=== PATIENT | female | born 1985 | race Caucasian/White ===

== ENCOUNTER → 2025-09-22 | Emergency (ER) | payer MEDICAID, OTHER ==
[~2025-09-22] VITALS: Ht 162.6 cm; Wt 87.5 kg
[~2025-09-22] MED LIST: ADV50100 IH; MECL12.5 PO
[2025-09-22 20:53] VITALS: BP 134/76; PULSE 73; RESP 16; TEMP 97.4; O2SAT 98
--- NOTE | 2025-09-25 09:39 | Physician Documentation ---
History of Present Illness ~ Chief Complaint: Burn Stated Complaint: HAND BURN Time Seen by MD: 20:58 OK to notify your PCP?: Yes Primary Medical Doctor: NONE Source: patient, family HPI Patient the patient is seen today with complaints of splashing hot oil onto her right palm just prior to arrival. She states he ran some cold water or for period of time but states it is still burning in his concerned. She denies any fever or chills and denies any other areas of injury. He has no other concern or complaint at this time. Tetanus within 5 years?: No Medication Reconciliation Allergies: Coded Allergies: levalbuterol HCl (Verified Allergy, Intermediate, BODY GOES NUMB, 09/22/25) Uncoded Allergies: CONTROL (Allergy, Intermediate, HOT AND SWEATY, 08/02/12) Scheduled Fluticasone/Salmeterol* (Advair 100-50 Diskus*), 1 INH IH BID, (Reported) Meclizine Hcl* (Antivert*), 25 MG PO 3 times a day Past Medical History Past Medical History: Migraine, Asthma, *RENAL/*, UTI Past Surgical History: no surgical history Last Menstrual Period: Oct 04, 2025 Smoking Status: Never smoker Alcohol Use: None Drug Use: none Lives with: Family Lives In: Home Occupation: unemployed Review of Systems Constitutional: Denies: chills, fever, weakness Eyes: Denies: pain, blurred vision ENT: Denies: ear pain, nose pain, throat pain, mouth pain Respiratory: Denies: cough, shortness of breath Cardiovascular: Denies: chest pain, palpitations Gastrointestinal: Denies: abdominal pain, nausea, vomiting Genitourinary: Denies: burning, dysuria Female Genitalia: Denies: vaginal discharge, pelvic pain Neurological: Denies: headache, dizziness Musculoskeletal: Denies: pain, swelling Integumentary: Denies: rash, lesions Allergic/Immunologic: Denies: hives, itching Hematologic/Lymphatic: Denies: no symptoms reported Psychiatric: Denies: depression, anxiety Physical Exam Vital Signs: Temperature: 97.4, Source: Temporal, Heart Rate: 73, Respiratory Rate: 16, BP: 134/76, Pulse Oximetry: 98, Weight: 87.500 Physical Exam General: Awake and Alert, no acute distress. HEENT: Conjunctiva pink, Sclera clear, Mucus Membranes moist. Neck: Supple without masses and tenderness. Resp: Unlabored. Lungs clear to auscultation bilaterally. Heart: Regular Rate and rhythm, normal S1 and S2 without murmur, rub or gallop. Musculoskeletal: Patient on exam has mild erythema of the right palm without any skin breakdown or vesicle formation. Patient is neurovascularly intact distally. Patient has significant tenderness to palpation of the right palm. Motor function and range of motion intact. Extremities: No cyanosis,clubbing or edema. Skin: Warm and Dry. Progress Results/Orders Results/Orders Vital Signs 09/22/25 20:53 Temp 97.4 Pulse 73 Resp 16 B/P (MAP) 134/76 Pulse Ox 98 Medical Decision Making Additional information obtaine: N/A Findings Patient the patient is seen today with complaints of splashing hot oil onto her right palm just prior to arrival. She states he ran some cold water or for period of time but states it is still burning in his concerned. She denies any fever or chills and denies any other areas of injury. He has no other concern or complaint at this time. Patient did have cold water running over the right palm for about an hour in the ED tonight. Patient states it is feeling a little better continue cold water therapy and will hold off on playing any salves or burn ointments until the burning sensation stops hopefully tomorrow. Patient will follow up with primary care in 1-3 days if no better as needed sooner. Return to ED with any worsening, concerning or changing symptoms. Differential Dx:Considerations: Include: Burn-Partial thickness, Burn-Full thickness Departure Disposition: 01 HOME / SELF CARE / HOMELESS Impression: Primary Impression: First degree burn of hand Qualified Codes: T23.151A - Burn of first degree of right palm, initial encounter Condition: Stable Discharge Instructions: Burn Care, Adult Additional Instructions: Patient did have cold water running over the right palm for about an hour in the ED tonight. Patient states it is feeling a little better continue cold water therapy and will hold off on playing any salves or burn ointments until the burning sensation stops hopefully tomorrow. Patient will follow up with primary care in 1-3 days if no better as needed sooner. Return to ED with any worsening, concerning or changing symptoms. Referrals: NO PRIMARY CARE PROVIDER (PCP) Signature Scribe Signature: No scribe Attestation: No scribe QURESHI,OCTAVIA R PAC Sep 25, 2025 09:39
== END | disposition home or self-care (01) ==
LOC: ER 20:50
DX: T23.151A Burn of first degree of right palm, initial encounter (principal); G43.909 Migraine, unspecified, not intractable, without status migrainosus; J45.909 Unspecified asthma, uncomplicated; X58.XXXA Exposure to other specified factors, initial encounter; Y93.89 Activity, other specified; Y92.89 Other specified places as the place of occurrence of the external cause; Y99.8 Other external cause status
CPT/HCPCS: 99281; 99282